=== PATIENT | female | born 1960 | race Caucasian/White ===

== ENCOUNTER 2018-01-27 08:48 | Emergency (ER) | payer OTHER ==
[~2018-01-27] VITALS: Ht 157.5 cm; Wt 53.5 kg
[2018-01-27] MEDS ORDERED: SYNTHROID88 MCG (09:04)
[2018-01-27] MEDS ORDERED: LEVAQUIN750 MG PO (11:17)
== END 2018-01-27 11:21 | disposition home or self-care (01) ==
LOC: ER 08:48
DX: S00.83XA Contusion of other part of head, initial encounter (principal); W21.04XA Struck by golf ball, initial encounter; Y93.89 Activity, other specified; Y92.89 Other specified places as the place of occurrence of the external cause; Y99.8 Other external cause status

== ENCOUNTER 2018-06-13 14:42 | Emergency (ER) | payer OTHER ==
[~2018-06-13] VITALS: Ht 157.5 cm; Wt 54.0 kg
[~2018-06-13 14:42] MED LIST: LEVAQUIN750 MG PO; SYNTHROID88 MCG
== END 2018-06-13 19:39 | disposition home or self-care (01) ==
LOC: ER 14:42
DX: G51.0 Bell's palsy (principal)